=== PATIENT | male | born 1985 | race Two or more races ===

== ENCOUNTER 2020-09-01 18:35 | Emergency (ER) | payer OTHER ==
[~2020-09-01] VITALS: Ht 154.9 cm; Wt 70.3 kg
[2020-09-01 19:14] LABS: Basophils # (auto) 0.1 10 ^3/uL (0-0.2); Basophils % (auto) 0.5 % (0.0-2.0); Eosinophils # (auto) 0.3 10 ^3/uL (0-0.8); Eosinophils % (auto) 2.5 % (0.0-7.0); Hematocrit 44.7 % (41.0-53.0); Hemoglobin 15.3 g/dL (13.5-17.5); Lymphocytes % (auto) 26.5 % (10.0-50.0); Mean Corpuscular Hemoglobin 30.9 pg (28.0-32.0); Mean Corpuscular Hgb Conc. 34.3 g/dL (32.0-36.0); Mean Corpuscular Volume 90.2 fL (80.0-100.0); Monocytes # (auto) 1.2 10 ^3/uL (0-1.3); Monocytes % (auto) 10.3 % (0.0-12.0); Neutrophils # (auto) 6.7 10 ^3/uL (1.6-8.6); Neutrophils % (auto) 60.2 % (37.0-80.0); Nucleated Red Blood Cells % 0.1 %; Platelet Count (auto) 291 10^3/uL (140-450); Red Blood Cells 4.96 10^6/uL (4.5-5.90); Red Cell Distribution Width 13.3 % (11.8-14.3); White Blood Cell 11.2 10^3/uL (4.4-10.8)
[2020-09-01 19:35] LABS: Albumin 4.3 g/dL (3.4-5.0); Calcium 8.5 mg/dL (8.5-10.1); Magnesium 2.3 mg/dL (1.6-2.6); Potassium 3.9 mmol/L (3.5-5.1)
[2020-09-01 19:41] LABS: BUN/Creatinine Ratio 22.2; Bilirubin, Total 0.4 mg/dL (0.2-1.0)
[2020-09-01 20:24] VITALS: BP 126/77
== END 2020-09-01 20:30 | disposition home or self-care (01) ==
LOC: ER 18:37
DX: R07.89 Other chest pain (principal); I25.2 Old myocardial infarction; Z87.891 Personal history of nicotine dependence; Z98.61 Coronary angioplasty status
CPT/HCPCS: 36415; 71046; 80053; 83735; 83880; 84484; 85025; 93005

== ENCOUNTER 2023-04-21 00:10 | Emergency (ER) | payer MEDICAID, OTHER ==
[~2023-04-21] VITALS: Ht 154.9 cm; Wt 77.0 kg
[2023-04-21] MEDS ORDERED: METHOCARBAMOL 500 MG TAB PO ONE (02:30)
[2023-04-21] MEDS ORDERED: IBUPROFEN 800 MG TAB PO ONE (02:30)
[2023-04-21 02:31] VITALS: BP 143/84
[2023-04-21] MEDS ORDERED: IBUP-1455 PO (03:15)
[2023-04-21] MEDS ORDERED: METH-1181 PO (03:15)
== END 2023-04-21 03:22 | disposition home or self-care (01) ==
LOC: ER 00:10
DX: S39.012A Strain of muscle, fascia and tendon of lower back, initial encounter (principal); Z98.890 Other specified postprocedural states; Z87.891 Personal history of nicotine dependence; Z88.6 Allergy status to analgesic agent; V89.2XXA Person injured in unspecified motor-vehicle accident, traffic, initial encounter; Y93.89 Activity, other specified; Y92.411 Interstate highway as the place of occurrence of the external cause; Y99.8 Other external cause status
CPT/HCPCS: 70450; 72080; 72125

== ENCOUNTER 2024-08-22 03:55 | Emergency (ER) | payer MEDICAID, OTHER ==
[~2024-08-22] VITALS: Ht 154.9 cm; Wt 68.1 kg
[~2024-08-22 03:55] MED LIST: IBUP-1455 PO; METH-1181 PO
[2024-08-22 05:30] VITALS: BP 126/79; PULSE 55; RESP 18; TEMP 98; O2SAT 97
== END 2024-08-22 06:31 | disposition home or self-care (01) ==
LOC: ER 03:55
DX: D17.1 Benign lipomatous neoplasm of skin and subcutaneous tissue of trunk (principal); I25.2 Old myocardial infarction; Z87.891 Personal history of nicotine dependence
CPT/HCPCS: 71101

== ENCOUNTER 2024-10-13 04:32 | Emergency (ER) | payer MEDICAID ==
[~2024-10-13] VITALS: Ht 154.9 cm; Wt 68.2 kg
[2024-10-13] MEDS ORDERED: CARB6.5S44 LEFT EAR (04:51)
[2024-10-13] MEDS ORDERED: AMOX875T4 PO (04:51)
[2024-10-13] MEDS ORDERED: IBUP-1456 PO (04:51)
--- NOTE | 2024-10-13 04:51 | ED.PDOC ---
Eye-HPI HPI Comments 39-year-old male presents to ER with complaints of left-sided earache x1 day. Patient reports he started experiencing intermittent left-sided earache and muffled hearing to left ear last night. Denies any current earache pain/overall pain. Denies use of medications for current symptoms. Patient presents to ER ambulatory on arrival, with steady gait, in no distress. Denies fever, ear drainage, trauma, recent swimming, skin changes, dizziness, nausea/vomiting or any further symptoms/complaints Chief Complaint: Earache Time Seen by MD: 04:34 Primary Care Provider: LEIGH ANN Reviewed Notes: Nurses Notes, Medications, Allergies Allergies: Coded Allergies: NO KNOWN ALLERGIES (Unverified , 09/01/20) Home Meds Active Scripts Ibuprofen (Ibuprofen) 800 Mg Tab, 1 TAB PO TID PRN, #30 TAB 0 Refills Prov:NEMO LUZ 10/13/24 Carbamide Peroxide (Debrox) 6.5 % Natalia, 5 DROP LEFT EAR BID for 5 Days, #1 BOTTLE 0 Refills Prov:NEMO LUZ 10/13/24 Amoxicillin & Pot Clavulanate (Amoxicillin/Potassium Cla) 875 Mg Tab, 1 TAB PO BID for 7 Days, #14 TAB 0 Refills Prov:NEMO LUZ 10/13/24 Methocarbamol (Methocarbamol) 500 Mg Tab, 500 MG PO TID PRN for 30 Days, #90 TAB Prov:PAULINA MARQUES [employer]PUT[employer] FORENSIC EXAMINER 04/21/23 Ibuprofen Micronized (Ibuprofen) 800 Mg Tab, 800 MG PO TID PRN for 30 Days, #90 TAB Prov:PAULINA MARQUES [facility] 04/21/23 Information Source: Patient Mode of Arrival: Ambulatory Past Medical History PAST MEDICAL HISTORY: CAD, [place] Surgical History: PTCA Family History Family History: Family hx of DM, Family hx of Cancer, Family hx of HTN Social History Smoker: Quit Less Than 1 Year Alcohol: Occasionally Drugs: Denies Drug Use Lives In: Home Constitutional: denies: chills, diaphoresis, fatigue, fever, malaise, sweats, weakness, others EENTM: reports: others (As stated in HPI) Respiratory: denies: cough, hemoptysis, orthopnea, SOB at rest, shortness of breath, SOB with excertion, stridor, wheezing, others Cardiovascular: denies: chest pain, dizzy spells, diaphoresis, Dyspnea on exertion, edema, irregular heart beat, left arm pain, lightheadedness, palpitations, PND, syncope, others Gastrointestinal: denies: abdomen distended, abdominal pain, blood streaked bowels, constipated, diarrhea, dysphagia, difficulty swallowing, hematemesis, melena, nausea, poor appetite, poor fluid intake, rectal bleeding, rectal pain, vomiting, others Genitourinary: denies: burning, dysuria, flank pain, frequency, hematuria, incontinence, penile discharge, penile sore, pain, testicle pain, testicle swelling, urgency, others Neurological: denies: dizziness, fainting, headache, left sided numbness, left sided weakness, numbness, paresthesia, pre-existing deficit, right sided numbness, right sided weakness, seizure, speech problems, tingling, tremors, weakness, others Musculoskeletal: denies: back pain, gout, joint pain, joint swelling, muscle pain, muscle stiffness, neck pain, others Integumetry: denies: bruises, change in color, change in hair/nails, dryness, laceration, lesions, lumps, rash, wounds, others Allergic/Immunocompromised: denies: Difficulty Healing, Frequent Infections, Hives, Itching, others Hematologic/Lymphatic: denies: anemia, blood clots, easy bleeding, easy bruising, swollen glands, others Endocrine: denies: excessive hunger, excessive sweating, excessive thirst, excessive urination, flushing, intolerance to cold, intolerance to heat, unexplained weight gain, unexplained weight loss, others Psychiatric: denies: anxiety, bipolar disorder, depression, hopeless, panic di sorder, schizophrenia, sleepless, suicidal, others Physical Exam General Appearance: No Apparent Distress HEENT: PERRL/EOMI, Pharynx Normal, Other (Cerumen impaction with mild erythema noted to left middle ear canal, unable to visualize the left TM due to cerumen impaction, slight decreased whispered hearing noted to left ear, no TTP to left tragus/TTP to left mastoid process noted, no skin changes to left ear noted. Ear exam on right-normal) Neck: Full Range of Motion, Non-Tender, Normal Respiratory: Chest Non-Tender, Lungs Clear, No Accessory Muscle Use, No Respiratory Distress, Normal Breath Sounds Cardiovascular: No Murmur, No Gallop, Regular Rate/Rhythm Breast Exam: Deferred Gastrointestinal: NOT DONE Genitalia: Deferred Pelvic: Deferred Rectal: Deferred Extremities: Normal capillary refill, Normal range of motion Neurologic: Alert, multifocal button inspector II-XII nml as Tested, No Motor Deficits, Normal Affect, Normal Mood, No Sensory Deficits Cerebellar Function: Normal Reflexes: Normal Skin: Dry, Normal Color, Warm Lymphatic: No Adenopathy Was a procedure done? Was a procedure done?: No Sedation Sedation?: No EENT DIFF Eye: N/A Ear: Cerumen Impaction, Foreign Body, Otitis Externa X-Ray, Labs, Meds, VS Vital Signs Date Time Temp Pulse Resp B/P (MAP) Pulse Ox O2 Delivery O2 Flow Rate FiO2 10/13/24 04:42 97.6 68 16 139/78 (98) 97 Advised to follow up with PCP in 1-2 days Patient verbalized understanding and agreeable with current plan of care Advised to return to ER immediately if symptoms worsen Time of 1ST Reevaluation: 04:20 Reevaluation 1ST: N/A Patient Education/Counseling: Diagnosis, Treatment, Prognosis, Need For Follow Up Family Education/Counseling: No Family Present Departure 1 Departure Time of Disposition: 04:42 Impression: Primary Impression: Impacted cerumen of left ear Additional Impression: Otitis media of left ear Qualified Codes: H66.92 - Otitis media, unspecified, left ear Disposition: 01 HOME / SELF CARE / HOMELESS Condition: Stable e-Prescriptions Ibuprofen (Ibuprofen) 800 Mg Tab 1 TAB PO TID PRN, #30 TAB 0 Refills Prov: NEMO LUZ 10/13/24 Carbamide Peroxide (Debrox) 6.5 % Natalia 5 DROP LEFT EAR BID for 5 Days, #1 BOTTLE 0 Refills Prov: NEMO LUZ 10/13/24 Amoxicillin & Pot Clavulanate (Amoxicillin/Potassium Cla) 875 Mg Tab 1 TAB PO BID for 7 Days, #14 TAB 0 Refills Prov: NEMO LUZ 10/13/24 Discharged With: Self Critical Care Note Critical Care Time?: No Stability Stability form required: No Heart Score Heart Score: Heart Score Response (Comments) Value History N/A 0 EKG N/A 0 Age N/A 0 Risk Factors N/A 0 Troponin N/A 0 Total 0 NEMO LUZ Oct 13, 2024 04:51
[2024-10-13 05:05] VITALS: BP 139/78; PULSE 68; RESP 16; TEMP 97.6; O2SAT 97
== END 2024-10-13 05:07 | disposition home or self-care (01) ==
LOC: ER 04:32
DX: H61.22 Impacted cerumen, left ear (principal); H66.92 Otitis media, unspecified, left ear; I25.10 Atherosclerotic heart disease of native coronary artery without angina pectoris; Z79.899 Other long term (current) drug therapy; Z98.890 Other specified postprocedural states

== ENCOUNTER 2025-06-22 12:17 | Emergency (ER) | payer BC, MEDICAID, OTHER ==
[~2025-06-22] VITALS: Ht 154.9 cm; Wt 69.5 kg
[~2025-06-22 12:17] MED LIST changes: +AMOX875T4 PO; +CARB6.5S44 LEFT EAR; +IBUP-1456 PO
--- NOTE | 2025-06-22 12:58 | ED.PDOC ---
Back pain HPI HPI Comments 40 year old male presents for a work related injury. 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 Minutes later the pain radiates to the posterior aspect of his right upper back. Currently pain is rated mild/moderate, aggravating when taking deep breaths or lifting something heavy. Therapies tried: none. Denies lung issues. Denies CP/SOB. Chief Complaint: Rib Pain Time Seen by MD: 12:36 Primary Care Provider: LEIGH ANN Barcenas Notes: Nurses Notes, Medications, Allergies Allergies: Coded Allergies: NO KNOWN ALLERGIES (Unverified , 09/01/20) Home Meds Active Scripts Naproxen (NAPROSYN TABLET) 500 Mg Tb, 1 TAB PO BID for 10 Days, #20 TAB 0 Refills Prov:LORENZO YIN DESK OPERATOR 06/22/25 Ibuprofen (Ibuprofen) 800 Mg Tab, 1 TAB PO TID PRN, #30 TAB 0 Refills Prov:NEMO LUZ 10/13/24 Carbamide Peroxide (Debrox) 6.5 % Natalia, 5 DROP LEFT EAR BID for 5 Days, #1 BOTTLE 0 Refills Prov:NEMO LUZ 10/13/24 Amoxicillin & Pot Clavulanate (Amoxicillin/Potassium Cla) 875 Mg Tab, 1 TAB PO BID for 7 Days, #14 TAB 0 Refills Prov:NEMO LUZ 10/13/24 Methocarbamol (Methocarbamol) 500 Mg Tab, 500 MG PO TID PRN for 30 Days, #90 TAB Prov:PAULINA MARQUESP 04/21/23 Ibuprofen Micronized (Ibuprofen) 800 Mg Tab, 800 MG PO TID PRN for 30 Days, #90 TAB Prov:PAULINA MARQUESP 04/21/23 Information Source: Patient Mode of Arrival: Ambulatory Timing: Hours Duration: Since onset, Hours Location of Back pain: Other Severity: Moderate Prehospital treatment: None Quality: Aching Onset: Spontaneous, Fall Circumstance: Work Related History of: None Modifying Factors: Movement Associated signs and symptoms: None Past Medical History PAST MEDICAL HISTORY: CAD, [place] Surgical History: PTCA Family History Family History: Family hx of DM, Family hx of Cancer, Family hx of HTN Social History Smoker: Quit Less Than 1 Year Alcohol: Occasionally Drugs: Denies Drug Use Lives In: Home Constitutional: denies: chills, diaphoresis, fatigue, fever, malaise, sweats, weakness, others EENTM: denies: blurred vision, double vision, ear bleeding, ear discharge, ear drainage, ear pain, ear ringing, eye pain, eye redness, hearing loss, mouth pain, mouth swelling, nasal discharge, nose bleeding, nose congestion, nose pain, photophobia, tearing, throat pain, throat swelling, voice changes, others Respiratory: denies: cough, hemoptysis, orthopnea, SOB at rest, shortness of breath, SOB with excertion, stridor, wheezing, others Cardiovascular: denies: chest pain, dizzy spells, diaphoresis, Dyspnea on exertion, edema, irregular heart beat, left arm pain, lightheadedness, palpitations, PND, syncope, others Gastrointestinal: denies: abdomen distended, abdominal pain, blood streaked bowels, constipated, diarrhea, dysphagia, difficulty swallowing, hematemesis, melena, nausea, poor appetite, poor fluid intake, rectal bleeding, rectal pain, vomiting, others Genitourinary: denies: burning, dysuria, flank pain, frequency, hematuria, incontinence, penile discharge, penile sore, pain, testicle pain, testicle swelling, urgency, others Neurological: denies: dizziness, fainting, headache, left sided numbness, left sided weakness, numbness, paresthesia, pre-existing deficit, right sided numbness, right sided weakness, seizure, speech problems, tingling, tremors, weakness, others Musculoskeletal: reports: others (Rib pain); denies: back pain, gout, joint pain, joint swelling, muscle pain, muscle stiffness, neck pain Integumetry: denies: bruises, change in color, change in hair/nails, dryness, laceration, lesions, lumps, rash, wounds, others Allergic/Immunocompromised: denies: Difficulty Healing, Frequent Infections, Hives, Itching, others Hematologic/Lymphatic: denies: anemia, blood clots, easy bleeding, easy bruising, swollen glands, others Endocrine: denies: excessive hunger, excessive sweating, excessive thirst, excessive urination, flushing, intolerance to cold, intolerance to heat, unexplained weight gain, unexplained weight loss, others Psychiatric: denies: anxiety, bipolar disorder, depression, hopeless, panic disorder, schizophrenia, sleepless, suicidal, others All Other Systems: Reviewed and Negative Physical Exam General Appearance: No Apparent Distress, Normal HEENT: Normal ENT Inspection, Pharynx Normal, TMs Normal Neck: Full Range of Motion, Non-Tender, Normal, Normal Inspection Respiratory: Chest Non-Tender, Lungs Clear, No Accessory Muscle Use, No Respira tory Distress, Normal Breath Sounds Cardiovascular: No Murmur, No Gallop, Regular Rate/Rhythm Breast Exam: Deferred Gastrointestinal: No Organomegaly, Non Tender, No Pulsatile Mass, Normal Bowel Sounds, Soft Genitalia: Deferred Pelvic: Deferred Rectal: Deferred Extremities: No calf tenderness, Normal capillary refill, Normal inspection, Normal range of motion, Non-tender, No pedal edema Musculoskeletal : Apperance: Normal Neurologic: Alert, hydraulic specialist II-XII nml as Tested, No Motor Deficits, Normal Affect, Normal Mood, No Sensory Deficits Cerebellar Function: Normal Reflexes: Normal Skin: Dry, Normal Color, Warm Lymphatic: No Adenopathy Was a procedure done? Was a procedure done?: No Back Pain Differential Dx Differential Diagnosis: Bowel Obstruction, Cholelithiasis, Fracture, Musculoskeletal Pain, Pancreatitis, Urinary Obstruction X-Ray, Labs, Meds, VS Vital Signs Date Time Temp Pulse Resp B/P (MAP) Pulse Ox O2 Delivery O2 Flow Rate FiO2 06/22/25 15:07 98.7 63 17 120/70 (87) 99 98.7 06/22/25 15:07 63 17 99 Room Air 06/22/25 12:34 69 06/22/25 12:30 98.6 76 16 131/79 96 98.6 Lab Test 06/22/25 13:08 Range/Units White Blood Count 6.8 4.4-10.8 10^3/uL Red Blood Count 4.91 4.5-5.90 10^6/uL Hemoglobin 15.3 13.5-17.5 g/dL Hematocrit 44.2 41.0-53.0 % Mean Corpuscular Volume 89.9 80.0-100.0 fL Mean Corpuscular Hemoglobin 31.1 28.0-32.0 pg Mean Corpuscular Hemoglobin Concent 34.7 32.0-36.0 g/dL Red Cell Distribution Width 13.9 11.8-14.3 % Platelet Count 238 140-450 10^3/uL Mean Platelet Volume 8.2 6.9-10.8 fL Neutrophils (%) (Auto) 54.2 37.0-80.0 % Lymphocytes (%) (Auto) 35.4 10.0-50.0 % Monocytes (%) (Auto) 8.8 0.0-12.0 % Eosinophils (%) (Auto) 1.3 0.0-7.0 % Basophils (%) (Auto) 0.3 0.0-2.0 % Neutrophils # (Auto) 3.7 1.6-8.6 10 ^3/uL Lymphocytes # (Auto) 2.4 0.4-5.4 10 ^3/uL Monocytes # (Auto) 0.6 0-1.3 10 ^3/uL Eosinophils # (Auto) 0.1 0-0.8 10 ^3/uL Basophils # (Auto) 0 0-0.2 10 ^3/uL Nucleated Red Blood Cells 0.2 % Sodium Level 143 136-145 mmol/L Potassium Level 3.9 3.5-5.1 mmol/L Chloride Level 107 98-107 mmol/L Carbon Dioxide Level 28 20-31 mmol/L Anion Gap 8 5-15 Blood Urea Nitrogen 22 9-23 mg/dL Creatinine 0.90 0.700-1.30 mg/dL Glomerular Filtration Rate Calc 112 >90 mL/min BUN/Creatinine Ratio 24.4 H 10.0-20.0 Serum Glucose 86 74-106 mg/dL Calcium Level 9.8 8.7-10.4 mg/dL X-Ray, Labs, Meds, VS Comment 40 year old male presents for a work related injury. Patient arrives alert and oriented, ABC's intact, afebrile, vital signs stable, saturating well in room air CBC was ordered to exclude anemia, blood loss, or infection. BMP was ordered to exclude electrolyte abnormalities, renal failure, dehydration, hyperglycemia EKG ordered to rule out any possible cardiac concerns: Chest x-ray ordered to rule out any possible pneumonia, pneumothorax, cardiomegaly, any Cardiothoracic abnormalities: Diagnostic imaging ordered by me and results interpreted by radiology :IMPRESSION: No acute cardiopulmonary disease. Labs in the ED showed:CBC and BMP were unremarkable Wells score negative Disposition: Discharge. Strict return precautions discussed with the patient with full understanding. Supportive care advised (rest, ice, heat, NSAIDs, stretching exercises) Massage muscles with cold pack or ice for 20 minutes 4 times per day. Usually most useful if there is swelling during the first 48 hours Heating pad on the most painful area for 20 minutes to relieve muscle spasm Sleep and the most comfortable sleeping position (usually on the side with knees bent) Light stretching, no strenuous activity, avoid frequent bending, avoid carrying heavy objects Discussed possible benefits of yoga and acupuncture External notes reviewed. Test results and diagnostic imaging interpreted. All diagnostic findings, discharge care, education and instructions provided Follow-up with PCP in 2 to 3 days Patient verbalized understanding and agreed to treatment plan Vital signs stable, afebrile, no acute distress noted Patient ambulatory with strong steady gait Advised to return precautions for any new or worsening symptoms, return to ER immediately for re-evaluation Patient is aware that the purpose of this visit was for an acute medical emergency requiring emergent stabilization. Chronic conditions, including malignancies have not been ruled out. Patient is instructed to follow up with PCP as directed and discharge instructions for continued care and workup. If unable to arrange follow-up, patient is to return to the emergency department for reassessment. Patient (parent or legal guardian if applicable) was given verbal and written discharge instructions and acknowledges understanding. Additional MDM Review of External, Non-ED records: External records reviewed. Discussion with independent historian (EMS, family) history obtained from the patient/parents (if applicable) at bedside Chronic conditions affecting care: None Social determinants of health affecting care: None Time of 1ST Reevaluation: 13:06 Reevaluation 1ST: Unchanged Time of 2ND Reevaluation: 14:00 Reevaluation 2ND: Improved Patient Education/Counseling: Diagnosis, Treatment, Need For Follow Up Family Education/Counseling: No Family Present SEPSIS Sepsis Screen Date sepsis recognized/suspect: Jun 22, 2025 Time Sepsis recognized/suspect: 1224 Recent Procedure: No On Antibiotic Therapy: No Respiratory Rate >20: No Heart Rate >90: No Temp<36 C (96.8 F) or >38.3 C: No SBP <90 or MAP <65 mmHG: No New Acute Mental Status Change: No Is the patient on CPAP, BIPAP,: No Physician Orders Electrocardigram (06/22/25 12:37) Chest Two Views Routine (06/22/25 12:56) Vital Signs Date Time Temp Pulse Resp B/P (MAP) Pulse Ox O2 Delivery O2 Flow Rate FiO2 06/22/25 15:07 98.7 63 17 120/70 (87) 99 98.7 06/22/25 15:07 63 17 99 Room Air 06/22/25 12:34 69 06/22/25 12:30 98.6 76 16 131/79 96 98.6 Laboratory Tests Test 06/22/25 13:08 White Blood Count 6.8 10^3/uL (4.4-10.8) Departure 1 Departure Time of Disposition: 14:45 Impression: Primary Impression: Back pain Qualified Codes: M54.6 - Pain in thoracic spine Disposition: HOME / SELF CARE / HOMELESS Condition: Stable e-Prescriptions Naproxen (NAPROSYN TABLET) 500 Mg Tb 1 TAB PO BID for 10 Days, #20 TAB 0 Refills Prov: LORENZO YIN NP 06/22/25 Critical Care Note Critical Care Time?: No Stability Stability form required: No Heart Score Heart Score: Heart Score Response (Comments) Value History N/A 0 EKG N/A 0 Age N/A 0 Risk Factors N/A 0 Troponin N/A 0 Total 0 I personally scribed for LORENZO YIN DESK OPERATOR ([email or web address]) on 06/22/25 at 13:22. Electronically submitted by Griffin Whipple ([employer]). I personally scribed for LORENZO YIN DESK OPERATOR ([email or web address]) on 06/22/25 at 13:26. Electronically submitted by Griffin Whipple ([employer]). I personally scribed for LORENZO YIN DESK OPERATOR ([email or web address]) on 06/22/25 at 13:26. Electronically submitted by Griffin Whipple ([email or web address]). I personally scribed for LORENZO YIN DESK OPERATOR ([email or web address]) on 06/22/25 at 13:59. Electronically submitted by Griffin Whipple ([employer]). LORENZO YIN NP Jun 22, 2025 12:58
--- NOTE | 2025-06-22 13:19 | DVH ---
XY CHEST TWO VIEWS ROUTINE CLINICAL HISTORY: R/o pna COMPARISON: CHEST TWO VIEWS ROUTINE on DOS: 09/01/20 TECHNIQUE: Frontal and lateral view of the chest was obtained FINDINGS: Lines and Tubes: None Lungs: No focal consolidation. Pleura: No effusion. No pneumothorax. Cardiomediastinal contours: Unremarkable Bones: No acute osseous abnormality. IMPRESSION: No acute cardiopulmonary disease.
[2025-06-22 13:35] LABS: Hematocrit 44.2 % (41.0-53.0); Hemoglobin 15.3 g/dL (13.5-17.5); Mean Corpuscular Hemoglobin 31.1 pg (28.0-32.0); Mean Corpuscular Volume 89.9 fL (80.0-100.0); Nucleated Red Blood Cells % 0.2 %
[2025-06-22 13:45] LABS: Potassium 3.9 mmol/L (3.5-5.1); Sodium 143 mmol/L (136-145)
[2025-06-22 13:46] LABS: Anion Gap 8 (5-15); Calcium 9.8 mg/dL (8.7-10.4); Carbon Dioxide 28 mmol/L (20-31)
[2025-06-22 13:51] LABS: BUN/Creatinine Ratio 24.4 (10.0-20.0); Blood Urea Nitrogen 22 mg/dL (9-23); Chloride 107 mmol/L (98-107); Glucose 86 mg/dL (74-106)
[2025-06-22] MEDS ORDERED: NAP500T PO (14:46)
[2025-06-22 15:07] VITALS: BP 120/70; PULSE 63; RESP 17; TEMP 98.7; O2SAT 99
--- NOTE | 2025-06-24 06:30 | ECG ---
[facility] Test Date: 2025-06-22 Test Time: 12:34:36 Pat Name: MITCHEL BROWER Department: [facility] ED Patient ID: [facility]-[id number] Room: Gender: M Tallow Pumper: ER : 1985 Requested By: AMANDA MORRIS Order Number: [id number] Reading MD: Sadiq Leonardo Measurements Intervals [place] Rate: 69 P: 57 WV: 157 QRS: 47 QRSD: 85 T: 33 QT: 375 QTc: 402 Interpretive Statements Sinus rhythm Baseline wander in lead(s) V3 Electronically Signed On 06-24-2025 11:19:05 PDT by Sadiq Leonardo Please click the below link to view image of tracing.
== END 2025-06-22 15:10 | disposition home or self-care (01) ==
LOC: ER 12:17
DX: M54.6 Pain in thoracic spine (principal); I25.10 Atherosclerotic heart disease of native coronary artery without angina pectoris
CPT/HCPCS: 36415; 71046; 80048; 85025; 93005